=== PATIENT | female | born 1980 | race Caucasian/White ===

== ENCOUNTER → 2017-03-10 | Outpatient (CLI) | payer OTHER ==
[~2017-03-10] MED LIST: HYDROCODON-ACE1 EAC5 PO; MACROBID 100 M100 MG PO; XANAX1 MG PO
--- NOTE | ~2017-03-10 | CR170 ---
[facility] A Service of [facility] & [facility] RADIOLOGY TEXT RESULTS PATIENT: JACKI CERDA LOCATION: [facility] : 78 UNIT #: [id number] AGE: [address]: Alejandro Jain MD SEX: F ORDER DR: [id number] [facility] [address] [place], [place] [address] [id number] O MR#: [id number] Acc #: [id number] NAME: JACKI CERDA : 1980 SEX: F STUDY DATE/TIME: 03/10/2017 16:01 UNIT: [facility] ROOM: STUDY DESCRIPTION: CR Knee 2 Views Rt Attending Physician: Alejandro Jain M.D. Referring Physician: Alejandro Jain M.D. Ordering Physician: Alejandro Jain M.D. Primary Care Physician: Primary Care Physician No MEDICAL IMAGING REPORT This report is preliminary unless electronic signature is present EXAM Right knee 2 views 03/10/2017 HISTORY Right knee pain for 3 years worsening in the last 2 weeks with no known injury. FINDINGS AP and lateral projection of the knee shows smooth articular anatomy without indication of fracture or dislocation at the major weight-bearing surface of the knee. There is no indication of radiopaque foreign body about the knee surface or joint effusion. IMPRESSION Normal right knee. Dictated by... Geovany Fernandez M.D. THIS IS AN ELECTRONICALLY VERIFIED REPORT Geovany Fernandez M.D. at 03/12/2017 8:29 AM KATIANA/joana TD: 03/11/2017 10:08 JOB #: [id number] MEDICAL IMAGING REPORT Page 1 of 1 COPY
== END | disposition home or self-care (01) ==
LOC: CRAD 15:45
DX: M25.561 Pain in right knee (principal)
CPT/HCPCS: 73560